=== PATIENT | female | born 1955 | race Caucasian/White ===

== ENCOUNTER 2018-07-29 12:13 | Inpatient (IN) ==
[~2018-07-29 12:13] MED LIST: LIDOCAINE W/ SODIUM BICARB 0.5 ML SYR SUBD ONE; Lactated Ringers 1,000 ML PRIMARY IV ONE; Nasal Sanitizer POPSWAB ampule 3 AMP (Nozin) PREOP DOSE ENOS SCH; ceFAZolin Inj 2gm (Premix) 2 GM/50 ML BAG IV ONE
[2018-07-29] MEDS ORDERED: LIDOCAINE W/ SODIUM BICARB 0.5 ML SYR ONE (13:30)
[2018-07-29] MEDS ORDERED: Vancomycin Inj 1gm vial ONE (13:31)
[2018-07-29] MEDS ORDERED: ceFAZolin Inj 2gm (Premix) 2 GM/50 ML BAG IV ONE (13:31)
[2018-07-29] MEDS ORDERED: Sodium Chloride 0.9% 250 ML ONE (13:31)
[2018-07-29] MEDS ORDERED: Lactated Ringers 1,000 ML PRIMARY IV ONE ×2 (13:31→18:46)
[2018-07-29] MEDS ORDERED: REMIFENTANIL 1 MG/1 ML IV ONE (15:32)
[2018-07-29] MEDS ORDERED: fentaNYL Inj 250 MCG/5 ML VIAL ONE (15:32)
[2018-07-29] MEDS ORDERED: REMIFENTANIL HCL 2 MG VIAL IV ONE (15:32)
[2018-07-29] MEDS ORDERED: Propofol 1,000 MG/100 ML VIAL IV ONE (15:32)
[2018-07-29] MEDS ORDERED: LIDOCAINE MPF 2% - 5 ML (20 MG/1 ML) ONE (15:32)
[2018-07-29] MEDS ORDERED: MIDAZOLAM 5 MG/1 ML ONE (15:32)
[2018-07-29] MEDS ORDERED: ROCURONIUM 10 MG/1 ML - 5 ML VIAL IVP ONE (15:34)
[2018-07-29] MEDS ORDERED: BUPIVACAINE 0.25% W/ EPI - 10 ML VIAL ONE (16:46)
[2018-07-29] MEDS ORDERED: BACITRACIN 50,000 UNIT VIAL IRRIG ONE (16:46)
[2018-07-29] MEDS ORDERED: Sodium Chloride 0.9% vial 10 ML ONE (16:46)
[2018-07-29] MEDS ORDERED: PROPOFOL 10 MG/1 ML (200 MG/20 ML) VIAL IV ONE (19:05)
[2018-07-29] MEDS ORDERED: BUPivacaine Liposome/PF (Exparel) Inj 20ml vial INFIL ONE (19:21)
[2018-07-29] MEDS ORDERED: BUPivacaine Inj 0.25% PF - 10ml vial ONE (19:21)
[2018-07-29] MEDS ORDERED: ONDANSETRON 4 MG/2 ML VIAL ONE (19:38)
--- NOTE | 2018-07-29 19:50 | GEN.OPNOTE ---
Operative Note Surgery Date: 07/29/18 Preoperative Diagnosis: 1.) Left L5/S1 radiculopathy. 2.) Left L5-S1 herniated nucleus propulsis. Postoperative Diagnosis: 1.) Left L5/S1 radiculopathy. 2.) Left L5-S1 subligamentous herniated nucleus propulsis. 3.) Thickened partially calcified ligamentum flavum medial to the left L5 pedicle. Procedure: 1.) Left L5-S1 microlumbar discectomy. (CPT code: 16580). 2.) Left proximal L5 neuroforaminotomy. 3.) Use of the operative microscope for the microsurgical techniques. (CPT code: 94624). 4.) Use of intra-operative fluoroscopy for localization of correct surgical level. 5.) Use of neuromonitoring including free running EMG's and SSEP's. Surgeon: Basim Bowman MD Instrument Lens Grinder Apprentice: TIANNA Leyva Anesthesia Provider: Karlo Fox CRNA Anesthesia Type: General Estimated Blood Loss (mL): 30 Fluids: See anesthesia record Pathology: None Indications: Ms. Ralf Browne is a 62 year old female with low back pain shooting down her left leg. She rates her pain as a 9/10 in intensity. Her symptoms are affecting her life as she could not walk more than short distances and had to use a cane for balance. She denied any leg weakness but has occasional tingling in her left leg. Ms. Ralf Browne had an MRI scan of her lumbar spine that demonstrated multilevel lumbar degenerative disc disease mostly mild to moderate at most lumbar levels but early advanced at L5-S1. This study demonstrated multilevel lumbar spondylosis with early advanced to advanced facet arthropathy at L4-5 and L5-S1. This study demonstrated a prominent broad based disc bulge at L5-S1 with a super imposed left paracentral disc herniation producing left lateral recess stenosis with impingement in the transversing left S1 nerve root. This study also demonstrates severe left L5 neural foraminal stenosis. Ms. Arambula failed to improve with expectant mangement and other non-operative therapies. We discussed that surgery would be a reasonable option and I recommended a left L5-S1 microlumbar discectomy. She wished to proceed with surgical treatment. Findings: 1.) Thickened partially calcified ligament in the left lateral recess medial to the left L5 pedicle. 2.) Subligamentous left L5-S1 herniated nucleus propulsis. Complications: None Operative Summary: Ms. Ralf Browne was met in the preoperative area. Her surgical history and physical was updated. The procedure to be performed was confirmed with Ms. Ralf Browne and this matched what was written on the patient's consent form. Any questions that she or her family members had were answered before she was taken back to the operating room suite. Mr. Browne was brought back to the operating room suite and put under general anesthesia and intubated by the anesthesia staff. She had a Moise catheter placed in her bladder for the procedure. She had pneumatic compression hose placed on her lower legs bilaterally. Ms. Browne was carefully rolled over onto the Maximilian surgical table with her arms gently positioned upwards with her shoulders abducted less than 90. Her arms were well-padded with foam padding on top of the padding the surgical armboards. The region of her chest and axilla was checked bilaterally to make sure that there were no pressure points over the region of the brachial plexus bilaterally. Her breasts were checked be below the chest pad of the Maximilian table no pressure points over the nipples. All bony prominences were well padded. Her Moise catheter was checked be free from kinks. The C-arm fluoroscopy unit was used to help localize the skin incision for the approach to the intended surgical level. The skin was marked with a skin marker with crosshatches. Ms. Browne was prepped and draped in the usual and standard fashion. She was given 2 g of Ancef and 1 g of vancomycin IV for perioperative antibiosis. The intended skin incision was injected subcutaneously with quarter percent Marcaine with 1 in 200,000 epinephrine. The skin was incised with a 10 blade scalpel and all dermal and superficial bleeding points were controlled with bipolar cautery. The dissection was continued through the subcutaneous tissue down to the lumbosacral fascia. The lumbosacral fascia was incised along the border the spinous processes on the left and subperiosteal dissection was performed down the spinous processes and out over the lamina. When the inferior aspect of the lamina was identified a [place] 4 was placed underneath the lamina and the level was localized with lateral fluoroscopy. The intended L5-S1 level on the left was localized. Subperiosteal dissection was continued until the majority the L5 lamina and the upper part of the S1 lamina and the medial aspect of the L5 5 S1 facet joint on the left were exposed. A Moi retractor was placed for self-retaining retraction. The operative microscope was brought into the surgical field and used for the microsurgical techniques used for the discectomy. The high-speed [employer] [place] drill with a matchstick bit was used to perform a hemilaminotomy and medial facetectomy. The up angled curette was then used to strip the insertion of the yellow ligament from underneath the remaining aspect of the L5 lamina. The plane between the yellow ligament and the dura was established using a nerve hook. The yellow ligament was completely removed in april-canal and lateral recess exposing the left half of the thecal sac and the takeoff of the transversing S1 nerve root. A [place] 4 instrument was used to her Moise dissect the soft tissue adjacent to the takeoff of the S1 nerve root identifying the L5-S1 disc space. There was a subligamentous disc herniation identified at the level of the disc space. Inspecting more rostrally there was thickened partially to mostly ossified ligament in the lateral recess standing up to and medial to the left L5 pedicle. This thickened calcified ligament was completely removed with Kerrison punches. Attention was turned back to the disc space proper. A D'Errico nerve root retractor was used to gently retract the thecal sac and the transversing S1 nerve root. Epidural veins over the disc space were coagulated with bipolar cautery turned down to a low setting and cut with microscissors. An annulotomy was performed with a 15 blade scalpel. Disc material was removed with a pituitary rongeur. Additional disc was loosened in the disc space using a medium down-biting Nilda curette. The fragments were removed with a pituitary rongeur. A proximal L5 foraminotomy was performed using the high- speed drill as well as undercutting with a small Kerrison punch. Some of the leading edge of the S1 lamina over the transversing S1 was removed with a small Kerrison punches to sleep the decompression of this nerve. Excellent decompression of the lateral half of the spinal canal at the L5-S1 level as well as the lateral recess and of the exiting L5 nerve root and transversing S1 nerve root was assured both by visual inspection as well as by palpation around these bony and nerve structures using a Hubbard instrument. The surgical site was copiously irrigated with bacitracin irrigation. A [place] 4 instrument was placed into the L5-S1 disc space and lateral fluoroscopic imaging confirmed that the correct surgical procedure at the correct surgical site had been performed. The surgical site was again copiously irrigated with bacitracin irrigation. The C-arm hemostatic agent was placed over all exposed dural elements. The closure portion of the procedure was begun. The fascia was closed tightly with #1 Vicryl suture in an interrupted fashion. The surgical site was again irrigated with bacitracin irrigation. The deep subcutaneous tissue and fascia was reapproximated with 2-0 Vicryl suture in an interrupted fashion. The dermis and superficial subcutaneous tissue was reapproximated with 3-0 Vicryl suture in an inverted interrupted fashion. The final layer of closure was performed with 4-0 Monocryl in a running subcuticular fashion. The surgical drapes were pulled back from the skin edges. The incision was cleansed with a bacitracin soaked sponge and dried with sterile dry sponge. Steri-Strips were placed across the incision. The incision was dressed with a Mepilex dressing. All surgical drapes were removed from Ms. Browne. She was carefully rolled over onto the PACU stretcher. She was awoken and extubated by the anesthesia staff. She was taken to the recovery room in stable condition. All surgical counts were reported as correct by the scrub and circulating personnel. A physician's optometric assistant, Ms. Alley Hodge, assisted with the procedure including the exposure and closure portions of the procedure. She also provided irrigation and suctioning throughout the procedure.
[2018-07-29] MEDS ORDERED: HYDROmorphone 2 MG/1 ML IVP PRN (20:02)
[2018-07-29] MEDS ORDERED: LIDOCAINE W/ SODIUM BICARB 0.5 ML SYR SUBD PRN (20:02)
[2018-07-29] MEDS ORDERED: PROMETHAZINE 25 MG/1 ML VIAL IM PRN ×2 (20:02→20:44)
[2018-07-29] MEDS ORDERED: fentaNYL Inj 100 MCG/2 ML VIAL IVP PRN (20:02)
--- NOTE | 2018-07-29 20:03 | CRNA.PROGR ---
Anesthesia Recovery Phase I - Post Anesthesia Evaluation Patient's Condition on Arrival in Phase I: Stable Pain Level: 0
--- NOTE | 2018-07-29 20:03 | CRNA.PROGR ---
Anesthesia Time - Procedure/Recovery Time Start Date: 07/29/18 End Date: 07/29/18 Anesthesia : Time In: 17:00 Anesthesia : Time Out: 19:50 Anesthesia : Total Time: 170 - Total Anesthesia Time Total Anesthesia Time (minutes): 170 - Other Weight: 62.596 kg Height: 5 ft Body Mass Index (BMI): 26.9 Physical Status: P2 Anesthesia Type: General Anesthesia : ET
--- NOTE | 2018-07-29 20:10 | NEURO.PROG ---
Subjective Post Op Day: 0 Pain Management: IV Moise Catheter: No Diet: Regular Ambulating: No Additional Details: Waking up in PACU. States leg feels better. Moving all extremities. Wiggling feet and toes bilaterally. PLAN: Continue post-operative antibiotics. Continue post-operative pain control. Advance diet. Mobilize in am. Objective : Data - Vital Signs Vital Signs and I&O: Intake and Output (24hr x 4 totals) 07/27/18 07/28/18 07/29/18 07/30/18 05:59 05:59 05:59 05:59 Intake Total 1550 / 1550 Output Total 105 / 105 Balance 1445 / 1445
[2018-07-29] MEDS ORDERED: Lactated Ringers 1,000 ML PRIMARY IV SCH (20:15)
[2018-07-29] MEDS ORDERED: ONDANSETRON 4 MG/2 ML VIAL IVP PRN (20:44)
[2018-07-29] MEDS ORDERED: Fleet Enema 133ml RECTAL PRN (20:44)
[2018-07-29] MEDS ORDERED: MAGNESIUM 400 MG/5 ML - 30 ML (MILK OF MAGNESIA) PO PRN (20:44)
[2018-07-29] MEDS ORDERED: Metoclopramide Inj 10 MG/2 ML VIAL IVP PRN (20:44)
[2018-07-29] MEDS ORDERED: Prochlorperazine Edisylate Inj 10mg/2ml vial IVP PRN (20:44)
[2018-07-29] MEDS ORDERED: HYDROcodone-APAP 7.5 MG-325 MG TABLET PO PRN (20:44)
[2018-07-29] MEDS ORDERED: MAGNESIUM CITRATE 296 ML SOLUTION PO PRN (20:44)
[2018-07-29] MEDS ORDERED: DIAZEPAM 5 MG TABLET PO PRN (20:44)
[2018-07-29] MEDS ORDERED: Ondansetron ODT Tab 4 MG TAB PO PRN (20:44)
[2018-07-29] MEDS ORDERED: Vancomycin-PHA to Dose IV SCH (20:44)
[2018-07-29] MEDS ORDERED: BISACODYL 5 MG TABLET PO PRN (20:44)
[2018-07-29] MEDS ORDERED: MORPHINE SULFATE 2 MG/1 ML IVP PRN (20:44)
[2018-07-29] MEDS ORDERED: HYDROcodone-APAP 5 MG -325 MG TABLET PO PRN (20:44)
[2018-07-29] MEDS ORDERED: METOPROLOL SUCCINATE 50 MG SR 24H TABLET PO SCH (20:44)
[2018-07-29] MEDS ORDERED: DOCUSATE 100 MG CAPSULE PO PRN (20:44)
[2018-07-29] MEDS ORDERED: HYDROCHLOROTHIAZIDE 25 MG TABLET PO SCH (20:44)
--- NOTE | 2018-07-29 21:43 | CONSULT ---
Consult Note - Consult Consult Date: 07/29/18 Reason for Consult: Other Requesting Physician: Dr. Bowman Primary Care Provider: Dr. Basim Bowman MD - History of Present Illness History of Present Illness: This is a 62 years old the female with medical history significant for history of hypertension, diabetes, hypercholesterolemia, early rheumatoid arthritis who came into the hospital to have back surgery and was done by Dr. Bowman today. The hospitalist service were consulted for management of medical issues. The patient was seen postoperatively. She was complaining from pain in her back but otherwise denying other symptoms. There is no nausea no shortness of breath. Past Medical History Medical History: 1. Hypertension. 2. Hypercholesterolemia. 3. Diabetes. 4. Sleep apnea on oxygen at night but however she said she's not been using it Surgical History: History of surgery on her shoulder before Family History: Reviewed an Not Pertinent Past Social History: She used to smoke quit a year and a half ago. Doesn't drink nor drugs. Lives in [place]. Tobacco Use: Former Smoker In the Past 12 Months, Have Used or Abuse Any of the Following Substance: Marijuana Alcohol Use: Rarely Review of Systems - Review of Systems All Systems: Reviewed & No Additional Complaints Except as Stated Medication / Allergies Home Medications: Home Medications 3 Medication Instructions Recorded Confirmed Type atorvastatin 10 mg tablet 10 mg PO QDAY 06/26/18 07/20/18 History coenzyme Q10 200 mg capsule 200 mg PO QDAY 06/26/18 07/20/18 History dulaglutide 1.5 mg/0.5 mL 1.5 mg SUBCUT QWEEK 06/26/18 07/20/18 History subcutaneous pen injector hydrochlorothiazide 25 mg tablet 25 mg PO QDAY 06/26/18 07/20/18 History metoprolol succinate ER 50 mg 50 mg PO QDAY 06/26/18 07/20/18 History tablet,extended release 24 hr trazodone 100 mg tablet 200 mg PO QDAY 06/26/18 07/20/18 History HYDROcodone/APAP 10/325 Tab 2 tab PO Q4H PRN #60 tab 07/30/18 Rx [Hydrocodon-Acetaminoph 10/325 Tab] Tizanidine HCl [Zanaflex] 4 mg PO Q6H PRN #60 tab 07/30/18 Rx Allergies/Adverse Reactions: Allergies 3 Allergy/AdvReac Type Severity Reaction Status Date / Time adhesive tape Allergy RASH Verified 07/30/18 06:29 prednisone Allergy SWELLING Verified 07/30/18 06:29 propoxyphene [From Darvon] Allergy SWELLING Verified 07/30/18 06:29 Exam - Vitals Vital Signs: Vital Signs Temperature 99.3 F Pulse Rate 76 Respiratory Rate 24 Blood Pressure 118/56 Pulse Ox 99 Oxygen Flow Rate 3 L by NC Height 5 ft Weight 138 lb - General General Appearance: No Acute Distress - Head Head Exam: Normal Inspection - Eye Eye Exam: POSITIVE: Normal Appearance - ENT ENT Exam: POSITIVE: Normal Exam - Neck Neck Exam: Normal Inspection - Respiratory Respiratory Exam: POSITIVE: Clear to Auscultation - Bilaterally - Cardiovascular Cardiovascular Exam: POSITIVE: RRR - GI/Abdominal GI/Abdominal Exam: POSITIVE: Normal Bowel Sounds, Non Tender, Non Distended, Soft, No Organomegaly - Rectal Rectal Exam: POSITIVE: Deferred - External Exam: POSITIVE: Deferred - Extremities Extremities Exam: POSITIVE: Normal Inspection - Neurological Neurological Exam: POSITIVE: Alert, Oriented x 3, CN II-XII Intact, Moves All Extremities Equally - Psychiatric Psychiatric Exam: POSITIVE: Normal Affect - Integumentary Integumentary Exam: POSITIVE: Normal Color Results - Labs CBC and BMP: 07/30/18 05:00 07/30/18 05:00 Assessment and Plan - Patient Problems (1) Chronic neck and back pain Current Visit: No Status: Chronic Comment: Status post surgery. Management per Dr. Bowman. Code(s): M54.2 - Cervicalgia; M54.9 - Dorsalgia, unspecified; G89.29 - Other chronic pain (2) High blood pressure Current Visit: No Status: Chronic Comment: Continue present medication. Code(s): I10 - Essential (primary) hypertension (3) High cholesterol Current Visit: No Status: Chronic Comment: Same med Code(s): E78.00 - Pure hypercholesterolemia, unspecified (4) Diabetes Current Visit: Yes Status: Acute Comment: She is on truelicity once a week and she had it today. Code(s): E11.9 - Type 2 diabetes mellitus without complications
[2018-07-29 21:59] LABS: BLOOD UREA NITROGEN 15 mg/dL (7-22); BUN/CREATININE RATIO 18.75 (6-20)
[2018-07-29] MEDS: HYDROcodone-APAP 10 MG-325 MG TABLET PO PRN (22:14)
[2018-07-29] MEDS: ceFAZolin Inj 1 GM in Sodium Chloride 0.9% 100 ML IV SCH (22:28)
[2018-07-29] MEDS: ATORVASTATIN 10 MG TABLET PO SCH (23:06)
[2018-07-30 00:38] VITALS: RESP 16
[2018-07-30] MEDS ORDERED: PNEUMOCOCCAL 23 VACCINE 25 MCG/0.5 ML VIAL IM ONE (01:04)
[2018-07-30] MEDS: HYDROcodone-APAP 10 MG-325 MG TABLET PO PRN ×3 (02:09→11:56)
[2018-07-30] MEDS: ceFAZolin Inj 1 GM in Sodium Chloride 0.9% 100 ML IV SCH (04:53)
[2018-07-30 05:16] LABS: BASOPHILS # (AUTO) 0.01 10*3/UL; BASOPHILS % (AUTO) 0.1 % (0-1); EOSINOPHILS # (AUTO) 0.12 10*3/UL; EOSINOPHILS % (AUTO) 1.6 % (0-8); Hematocrit [HCT] 35.4 % (37.0-47.0); Hemoglobin [HGB] 11.4 g/dL (12.0-16.0); LYMPHOCYTES # (AUTO) 2.63 10*3/uL; MEAN CORPUSCULAR HEMOGLOBIN 29.8 PG (27-31); MEAN CORPUSCULAR HGB CONC 32.2 g/dL (33-37); MEAN CORPUSCULAR VOLUME 92.7 FL (81-99); MEAN PLATELET VOLUME 9.5 FL (7.4-12.2); MONOCYTES # (AUTO) 0.59 10*3/UL (0.3-0.8); MONOCYTES % (AUTO) 8.1 % (5-15); NEUTROPHILS # (AUTO) 3.94 10*3/UL; NEUTROPHILS % (AUTO) 54.1 % (50-80); RED BLOOD COUNT 3.82 10^6/uL (4.20-5.40)
[2018-07-30 05:25] LABS: PLATELET MORPHOLOGY COMMENT NORMAL MORPHOLOGY (NORM); RBC MORPHOLOGY COMMENT NORMAL MORPHOLOGY (NORM); WBC MORPHOLOGY COMMENT NORMAL MORPHOLOGY (NORM)
[2018-07-30 05:28] LABS: BLOOD UREA NITROGEN 13 mg/dL (7-22); BUN/CREATININE RATIO 16.25 (6-20)
[2018-07-30] MEDS ORDERED: PANTOPRAZOLE 40 MG TABLET PO SCH (07:00)
[2018-07-30] MEDS ORDERED: GLYCOPYRROLATE 0.2 MG/1 ML VIAL ONE (07:37)
--- NOTE | 2018-07-30 07:42 | NEURO.PROG ---
Subjective Post Op Day: 1 Pain Management: PO Moise Catheter: No Flatus: Yes Diet: Regular Ambulating: Yes Additional Details: No complaints. Leg pain gone. Awake and alert. Moving all extremities bilaterally. Good/full dorsiflexion/plantarflexion bilaterally. Feels ready for discharge to home. PLAN: Discharge to home. Objective : Data - Labs CBC and BMP: 07/30/18 05:00 07/30/18 05:00 - Vital Signs Vital Signs and I&O: Vital Signs - Last Taken Temperature 97.6 F 07/30/18 05:00 Pulse Rate 75 07/30/18 05:00 Respiratory Rate 16 07/30/18 05:00 Blood Pressure 112/69 07/30/18 05:00 Pulse Ox 97 07/30/18 05:00 Intake and Output (24hr x 4 totals) 07/28/18 07/29/18 07/30/18 07/31/18 05:59 05:59 05:59 05:59 Intake Total 2300 / 2300 Output Total 805 / 805 Balance 1495 / 1495
[2018-07-30] MEDS ORDERED: HYDROCHLOROTHIAZIDE 25 MG TABLET PO SCH (09:00)
[2018-07-30] MEDS ORDERED: METOPROLOL SUCCINATE 50 MG SR 24H TABLET PO SCH (09:00)
[2018-07-30] MEDS: ATORVASTATIN 10 MG TABLET PO SCH (09:46)
--- NOTE | 2018-07-30 10:21 | PT.PROG ---
Progress Note Progress Note: Inpatient Initial Evaluation Name: Rosemary Avendano Date: 07/30/18 Referring Physician: Basim Bowman Date of surgery/admission: 07/29/18 Thank you for your referral of PT. She was seen on 07/30/18 for the above diagnosis. Subjective: Patient is a 62 year old female with a s/p lumbar fusion. Patient states her pain is a 7/10. She was able to sleep through the night. Past Medical History: Past medical history can be found in the patient's medical chart. Objective: The patient sat up in bed with moderate difficulty, but was able to complete transfer with MIAx1. Patient ambulated from her bed to her arm chair MOAx2. Assessment: Problems List: 1. Pain 2. Weakness 3. Difficulty walking 4. Difficulty transferring Short Term Goals: Patient will be able to ambulate 150 ft in order to walk at home safely and independently following discharge. Patient will have reduced pain to 5/10 with activity in order to transfer safely and independently following discharge. terminal makeup operator goals: Patient will be seen by outpatient physical therapy in [place]. Treatment Plan: Patient will be seen twice a day during the week and once over the weekend as an inpatient until discharge. Initial Treatment: See objective Respectfully joelle, Carey Castaneda, [facility], [facility]
--- NOTE | 2018-07-30 10:46 | PT.PROG ---
Progress Note Progress Note: Inpatient Initial Evaluation Name: Mariela Arambula Date: 07/30/18 Referring Physician: Basim Bowman Date of surgery: 07/29/18 Diagnosis: s/p laminectomy Thank you for your referral of PT. She was seen on 07/30/18 for the above diagnosis. Subjective: Patient is a 62 year old female s/p laminectomy. She states her pain is a 9/10. She lives in a split level home with her . There are six stairs to get upstairs and six downstairs. Past medical history: Past medical history can be found in the patient's medical chart. Objective: The patient completed sit to stand independently. She ambulated 150 ft around the nurses station with MIAx1. She began weaving down the hallway as she walked so she sat down. Her BP was recorded upon arrival back to her room and was recorded as 98/55. She also completed stairs with MIAx1. Assessment: Problem List: 1. Pain 2. Weakness 3. Difficulty walking Short term goals: 1. Patient will be able to ambulate 150 ft independently prior to discharge. 2. Patient will have reduced pain to 7/10 prior to discharge in order to transfer safely at home. terminal operations manager goals: 1. Patient will be seen by outpatient physical therapy in [place]. Treatment Plan: Patient will be seen twice a day during the week and once over the weekend until she is discharged. Initial Treatment Plan: See objective Respectfully joelle, Carey Castaneda, SPT [facility], [facility]
[2018-07-30 11:15] VITALS: BP 97/53; TEMP 97.8; O2SAT 93
--- NOTE | 2018-07-30 16:24 | OTI REPORT ---
Thank you for the referral of Mariela Browne. She was seen on 07/30/18 for an occupational therapy inpatient evaluation status post laminectomy. SUBJECTIVE: The patient is a 62-year-old female who lives in [place] with her . The patient reports that she typically uses a cane and she does have a lot of dizziness when she stands up at times. She also reports that she does feel a little more dizzy today than normal. PAST MEDICAL HISTORY: Past medical history can be found in the patient's medical record. OBJECTIVE FINDINGS: Bed mobility: The patient was able to come from supine to sit independently. Activities of daily living: Today we addressed dressing self. The patient was able to sit edge of bed and bring her legs up to where she did not bend over to don pants and to doff and don socks. She was issued a case finisher as the patient is afraid to bend down to the floor. She was issued the case finisher so that she does not bend too far and break back precautions. The patient was also issued a bath sponge so that she could wash her back without twisting. Transfers: The patient was able to come from sit to stand with min assist. She did have balance difficulties, even with the cane and wanted to hold on with the other hand. This was addressed more with physical therapy getting her a walker. The patient did stand at sink for a couple of minutes. She needed contact guard to min assist to keep her balance. ASSESSMENT: The patient did do okay with her ADLs while sitting edge of bed; however, when standing, she does have balance difficulties and is a safety concern. Problem List: Decreased ability to complete ADLs Decreased balance Short-Term Goals: To be met by discharge from inpatient: Patient will be able to dress self including obtaining clothes without balance difficulties. Patient will be able to stand without balance difficulties in order to complete hygiene activities at sink. Patient will use adaptive devices safely and appropriately with independence. Long-Term Goals: To be met following discharge from inpatient: Patient will be able to be discharged home, demonstrating safety with all functional tasks and functional reaching activities without loss of balance. TREATMENT PLAN: Patient will be seen possibly one more time this afternoon to go over balance while reaching and ADL asks. INITIAL TREATMENT: Treatment today consisted of the initial evaluation activities only. MANJEETD
--- NOTE | 2018-07-31 12:09 | PT PM DAY ---
Diagnosis : Status Post Laminectomy PM - Physical Therapy S: The patient states she would like to review the stairs in order to be able to be discharged home. The patient's is present as well. O: Treatment consisted of the patient ambulating with front wheeled walker from her room to the stairwell, approximately 70 feet with stand by assist x1 for safety. The patient did ambulate better and was more safe this afternoon vs. the morning session. The patient and her were instructed on stairs with use of the front wheeled walker and a railing. The patient was educated to go up with her stronger side on the way up and the weaker side on the way down for safety. The patient did require mod verbal cueing for propre walker placement. Following stair climbing activity, the patient returned back to her room and the patient and her were instructed on how to properly secure the abdominal binder and how to adjust each side. A: The patient demonstrated improved safety with ambulation with front wheeled walker this afternoon and was able to complete stair activity with a couple verbal cues for proper walker placement. The patient's was present during this time and demonstrated competency with stair climbing activity. P: Patient will be discharged from PT as goals have been met. MTDD
== END 2018-07-30 13:02 | disposition home or self-care (01) | DRG 460 ==
LOC: OPS 12:13 → MED/SURG 19:38
PROVIDERS: ADMIT Neurological Surgery; ATTEND Neurological Surgery